=== PATIENT | female | born 1985 | race Two or more races ===

== ENCOUNTER 2022-02-06 16:30 | Inpatient (IN) | payer OTHER ==
[~2022-02-06] VITALS: Ht 154.9 cm; Wt 111.5 kg
[2022-02-06 17:14] LABS: Basophils # (auto) 0 10 ^3/uL (0-0.2); Basophils % (auto) 0.6 % (0.0-2.0); Eosinophils # (auto) 0.1 10 ^3/uL (0-0.8); Eosinophils % (auto) 0.9 % (0.0-7.0); Hematocrit 24.3 % (36.0-46.0); Hemoglobin 7.1 g/dL (12.2-16.2); Lymphocytes # (auto) 1.3 10 ^3/uL (0.4-5.4); Lymphocytes % (auto) 17.3 % (10.0-50.0); Mean Corpuscular Hemoglobin 17.3 pg (28.0-32.0); Mean Corpuscular Hgb Conc. 29.2 g/dL (32.0-36.0); Mean Corpuscular Volume 59.2 fL (80.0-100.0); Monocytes # (auto) 0.4 10 ^3/uL (0-1.3); Monocytes % (auto) 5.8 % (0.0-12.0); Neutrophils # (auto) 5.7 10 ^3/uL (1.6-8.6); Neutrophils % (auto) 75.4 % (37.0-80.0); Nucleated Red Blood Cells % 0.2 %; White Blood Cell 7.5 10^3/uL (4.4-10.8)
[2022-02-06 17:16] LABS: Red Cell Distribution Width 20.3 % (11.8-14.3)
[2022-02-06 17:28] LABS: Partial Thromboplastin Time 25.5 sec (23.6-33.0)
[2022-02-06 17:31] LABS: Albumin 3.8 g/dL (3.4-5.0); Calcium 9.1 mg/dL (8.5-10.1); Potassium 4.1 mmol/L (3.5-5.1)
[2022-02-06 17:35] LABS: BUN/Creatinine Ratio 17.4; Bilirubin, Total 0.9 mg/dL (0.2-1.0); Total Protein 7.8 g/dL (6.4-8.2)
[2022-02-06] MEDS ORDERED: ACETAMINOPHEN 325 MG TAB PO PRN (20:30)
[2022-02-06] MEDS ORDERED: HYDROcodone-ACET 10/325MG TAB PO PRN (20:30)
[2022-02-06] MEDS ORDERED: ONDANSETRON HCL 4 MG/2 ML VIAL IV PRN (20:30)
[2022-02-06 21:30] VITALS: BP 109/64
[2022-02-06 21:45] VITALS: BP 106/62
[2022-02-06] MEDS: FERROUS SULFATE 325mg EC TAB PO SCH (22:07)
[2022-02-06 22:10] VITALS: BP 122/64
[2022-02-06 22:40] VITALS: BP 112/52
[2022-02-06 23:41] LABS: Urine Bacteria FEW /hpf (None Seen); Urine Blood Negative /uL (Negative); Urine Specific Gravity 1.012 (1.001-1.035); Urine WBC 2 /hpf (0 - 5)
[2022-02-07] VITALS: BP 122/60
[2022-02-07 05:00] VITALS: BP 93/58
[2022-02-07] MEDS: FERROUS SULFATE 325mg EC TAB PO SCH ×2 (07:15→14:00)
[2022-02-07 07:36] LABS: Basophils # (auto) 0.1 10 ^3/uL (0-0.2); Hemoglobin 7.7 g/dL (12.2-16.2); Lymphocytes # (auto) 1.5 10 ^3/uL (0.4-5.4); Monocytes # (auto) 0.6 10 ^3/uL (0-1.3); Neutrophils # (auto) 5.1 10 ^3/uL (1.6-8.6); Nucleated Red Blood Cells % 0.5 %; White Blood Cell 7.5 10^3/uL (4.4-10.8)
[2022-02-07 07:39] LABS: Potassium 3.9 mmol/L (3.5-5.1)
[2022-02-07 07:40] LABS: Basophils % (auto) 1.9 % (0.0-2.0); Eosinophils # (auto) 0.2 10 ^3/uL (0-0.8); Eosinophils % (auto) 2.3 % (0.0-7.0); Lymphocytes % (auto) 20.1 % (10.0-50.0); Monocytes % (auto) 7.7 % (0.0-12.0)
[2022-02-07 07:54] LABS: Hematocrit 26.2 % (36.0-46.0); Mean Corpuscular Hemoglobin 18.5 pg (28.0-32.0); Mean Corpuscular Hgb Conc. 29.5 g/dL (32.0-36.0); Mean Corpuscular Volume 62.6 fL (80.0-100.0); Red Blood Cells 4.18 10^6/uL (4.0-5.20); Red Cell Distribution Width 21.8 % (11.8-14.3)
[2022-02-07 07:57] LABS: BUN/Creatinine Ratio 21.4; Calcium 8.7 mg/dL (8.5-10.1)
[2022-02-07 08:50] VITALS: BP 108/69
[2022-02-07 13:00] VITALS: BP 116/65
[2022-02-07 17:01] VITALS: BP 120/72
== END 2022-02-07 18:39 | DRG 812 ==
LOC: ER 16:30 → EEVIPCON 16:30 → OVERFLOW 20:23 → WEST WING 22:10
PROVIDERS: ADMIT Internal Medicine; ATTEND Internal Medicine
PROC: 30233N1 Transfusion of Nonautologous Red Blood Cells into Peripheral Vein, Percutaneous Approach (ICD-10-PCS; principal; 2022-02-06)
DX: D64.9 Anemia, unspecified (principal); Z20.822 Contact with and (suspected) exposure to COVID-19; N92.1 Excessive and frequent menstruation with irregular cycle; Z83.3 Family history of diabetes mellitus; Z82.49 Family history of ischemic heart disease and other diseases of the circulatory system
CPT/HCPCS: 36415; 76856; 80048; 80053; 81001; 82270; 84443; 85025; 85045; 85610; 85730; 86850; 86900; 86901; 86920; G0378